=== PATIENT | male | born 1980 | race African-American/Black ===

== ENCOUNTER 2017-01-10 14:47 | Emergency (ER) | payer OTHER | END 2017-01-10 14:53 | disposition left against medical advice (07) | LOC: ER 14:47 | DX: Z53.9 Procedure and treatment not carried out, unspecified reason (principal); M54.9 Dorsalgia, unspecified ==

== ENCOUNTER 2017-11-18 14:25 | Emergency (ER) | payer SELFPAY ==
[2017-11-18 14:30] VITALS: BP 138/88
[2017-11-18] MEDS ORDERED: DICYCLOMINE HCL 20 MG TABLET PO ONE (14:44)
--- NOTE | 2017-11-18 14:50 | ER Document Report ---
ED General - General Chief Complaint: Abdominal Pain Stated Complaint: STOMACH PAIN Notes: 37-year-old male here with complaints of lower abdominal cramping intermittent ongoing for the past 1-2 days. He has also had some softer than usual stools that he is calling "diarrhea". He has not taken anything for the symptoms. He does not have any dysuria hematuria frequency hesitancy penile discharge/pain. He states that he went to [place] for a bachelor libertarian recently and that he did eat "a lot of libertarian food". He denies any fevers chills nausea vomiting. TRAVEL OUTSIDE OF THE [place] IN LAST 30 DAYS: No - Related Data Allergies/Adverse Reactions: No Known Allergies Allergy (Verified 11/18/17 14:26) Past Medical History - Social History Smoking Status: Current Every Day Smoker Chew tobacco use (# tins/day): No Frequency of alcohol use: None Drug Abuse: Marijuana Family History: None Patient has suicidal ideation: No Patient has homicidal ideation: No - Past Medical History Cardiac Medical History: Reports: Hx Hypertension Renal/ Medical History: Denies: Hx Peritoneal Dialysis Review of Systems - Review of Systems Notes: See history of present illness for pertinent positive review of systems; otherwise all review of systems have been reviewed and are negative Physical Exam - Vital signs Vitals: Temp Pulse Resp BP Pulse Ox 98.3 F 78 14 138/88 H 99 11/18/17 14:29 11/18/17 14:29 11/18/17 14:29 11/18/17 14:29 11/18/17 14:29 - Notes Notes: PHYSICAL EXAMINATION: GENERAL: Well-appearing and in no acute distress. HEAD: Atraumatic, normocephalic. EYES: Pupils equal round and reactive to light, extraocular movements intact, sclera anicteric, conjunctiva are normal. ENT: nares patent, oropharynx clear without exudates. Moist mucous membranes. NECK: Normal range of motion, supple without lymphadenopathy LUNGS: CTAB and equal. No wheezes rales or rhonchi. HEART: Regular rate and rhythm without murmurs ABDOMEN: Soft, no tenderness. No facial grimacing/wincing upon palpation. No guarding, no rebound. EXTREMITIES: Normal range of motion, no pitting edema. No cyanosis. NEUROLOGICAL: Cranial nerves grossly intact. Normal sensory/motor exams. PSYCH: Normal mood, normal affect. SKIN: Warm, Dry, normal turgor, no rashes or lesions noted Course - Re-evaluation Re-evalutation: 11/18/17 14:49 MEDICAL DECISION MAKING: Concern for gastroenteritis, most likely viral Will prescribe Bentyl Zofran and instructed follow-up PCP and/or health department Patient understands and agrees to the plan of care - Vital Signs Vital signs: Temp Pulse Resp BP Pulse Ox 98.3 F 78 14 138/88 H 99 11/18/17 14:29 11/18/17 14:29 11/18/17 14:29 11/18/17 14:29 11/18/17 14:29 Discharge - Discharge Clinical Impression: Abdominal cramping Condition: Good Disposition: HOME, SELF-CARE Additional Instructions: You were seen in the emergency department at [facility]. Use the prescribed medication as needed for your GI bug symptoms. Do not have unprotected sex. Please followup with your primary physician in the next few days for further management/evaluation. Please return to the emergency department for worsening of symptoms or any symptom that you deem to be concerning or life-threatening. Thank you for allowing us to be part of your care. Prescriptions: Ondansetron [Zofran Odt 4 mg Tablet] 1 - 2 tab PO Q4HP PRN #10 tab.rapdis PRN Reason: Dicyclomine HCl [Bentyl 20 mg Tablet] 20 mg PO QID #40 tablet
== END 2017-11-18 14:51 | disposition home or self-care (01) ==
LOC: ER 14:25
DX: R10.30 Lower abdominal pain, unspecified (principal); R19.4 Change in bowel habit; F17.200 Nicotine dependence, unspecified, uncomplicated; I10 Essential (primary) hypertension; F12.10 Cannabis abuse, uncomplicated
CPT/HCPCS: 99283; J3490

== ENCOUNTER 2018-01-06 23:45 | Emergency (ER) | payer SELFPAY ==
[2018-01-07 00:10] VITALS: BP 132/80
--- NOTE | 2018-01-07 01:29 | ER Document Report ---
HPI - HPI Pain Level: 3 Context: Patient is a 37-year-old male presents emergency department with a bump on his right posterior shoulder blade that has been there for an unknown period of time but states that his girlfriend is noticed it 2 days ago he denies any pain , redness, tenderness and decreased range of motion. - CONSTITUTIONAL Constitutional: DENIES: Fever, Chills - EENT EENT: DENIES: Sore Throat, Ear Pain, Eye problems - NEURO Neurology: DENIES: Headache, Weakness, Vision blurred, Dizzinesss / Vertigo - CARDIOVASCULAR Cardiovascular: DENIES: Chest pain - RESPIRATORY Respiratory: DENIES: Trouble Breathing, Coughing - GASTROINTESTINAL Gastrointestinal: DENIES: Abdominal Pain, Black / Bloody Stools - URINARY Urinary: DENIES: Dysuria, Urgency, Frequency - MUSCULOSKELETAL Musculoskeletal: DENIES: Extremity pain Past Medical History - Social History Smoking Status: Unknown if Ever Smoked Family History: None Patient has suicidal ideation: No Patient has homicidal ideation: No - Past Medical History Cardiac Medical History: Reports: Hx Hypertension Renal/ Medical History: Denies: Hx Peritoneal Dialysis Vertical Provider Document - CONSTITUTIONAL Agree With Documented VS: Yes Notes: PHYSICAL EXAM GENERAL: Alert, interacts well. HEAD: Normocephalic, atraumatic. EXTREMITIES: Right scapula with lipoma measuring 3 cm in diameter that is mobile , nontender and soft and fluctuant moves all 4 extremities spontaneously. No edema, radial pulses 2/4 bilaterally. No cyanosis. NEUROLOGICAL: Alert and oriented x4. Normal speech. PSYCH: Normal affect, normal mood. SKIN: Warm, dry, normal turgor. No rashes or lesions noted. - INFECTION CONTROL TRAVEL OUTSIDE OF THE [place] IN LAST 30 DAYS: No Course - Re-evaluation Re-evalutation: Patient is a 37-year-old male presents with a lipoma in the posterior shoulder blade, discussed with patient the benign nature of the site and to follow-up with primary care if symptoms change or worsen or any overlying redness, tenderness or swelling. This time there is no indication for imaging given benign and superficial nature of the site. - Vital Signs Vital signs: Temp Pulse Resp BP Pulse Ox 98.4 F 60 18 132/80 H 98 01/07/18 00:08 01/07/18 00:08 01/07/18 00:08 01/07/18 00:08 01/07/18 00:08 Discharge - Discharge Clinical Impression: Lipoma Qualifiers: Lipoma location: trunk Qualified Code(s): D17.1 - Benign lipomatous neoplasm of skin and subcutaneous tissue of trunk Condition: Good Disposition: HOME, SELF-CARE Additional Instructions: Superficial subcutaneous lipomas are the most common benign soft-tissue neoplasms. They consist of mature fat cells enclosed by thin fibrous capsules. Lipomas can occur on any part of the body and usually develop superficially in the subcutaneous tissue. Rarely, they may involve fascia or deeper muscular planes. Lipomas present as soft, painless subcutaneous nodules ranging in size from 1 to >10 cm. They occur most frequently on the trunk and upper extremities and can be round, oval, or multilobulated Referrals: EMERALD VALADEZ MD [ACTIVE STAFF] - Follow up as needed
== END 2018-01-07 01:33 | disposition home or self-care (01) ==
LOC: ER 23:45
DX: D17.1 Benign lipomatous neoplasm of skin and subcutaneous tissue of trunk (principal)
CPT/HCPCS: 99283

== ENCOUNTER 2018-12-03 13:42 | Emergency (ER) | payer SELFPAY ==
[2018-12-03] MEDS ORDERED: IBUPROFEN 600 MG TABLET PO ONE (14:00)
--- NOTE | 2018-12-03 14:01 | ER Document Report ---
HPI - HPI Time Seen by Provider: 12/03/18 13:51 Pain Level: 5 Notes: Patient is an otherwise healthy 38-year-old male the emergency department with complaints of pain to his left hand. Patient reports he was working on his car when the slater fell down and smashed his hand. Patient reports he is able to move all of his fingers. He denies any numbness or tingling. - CONSTITUTIONAL Constitutional: DENIES: Fever, Chills - EENT EENT: DENIES: Sore Throat, Ear Pain, Eye problems - NEURO Neurology: DENIES: Headache, Weakness, Vision blurred, Dizzinesss / Vertigo - CARDIOVASCULAR Cardiovascular: DENIES: Chest pain - RESPIRATORY Respiratory: DENIES: Trouble Breathing, Coughing - GASTROINTESTINAL Gastrointestinal: DENIES: Abdominal Pain, Black / Bloody Stools - URINARY Urinary: DENIES: Dysuria, Urgency, Frequency - MUSCULOSKELETAL Musculoskeletal: REPORTS: Extremity pain Past Medical History - General Information source: Patient - Social History Smoking Status: Current Every Day Smoker Chew tobacco use (# tins/day): No Frequency of alcohol use: None Drug Abuse: None Family History: None Patient has suicidal ideation: No Patient has homicidal ideation: No - Past Medical History Cardiac Medical History: Reports: Hx Hypertension Renal/ Medical History: Denies: Hx Peritoneal Dialysis Vertical Provider Document - CONSTITUTIONAL Notes: PHYSICAL EXAMINATION: GENERAL: Well-appearing, well-nourished and in no acute distress. HEAD: Atraumatic, normocephalic. EYES: Pupils equal round extraocular movements intact, conjunctiva are normal. ENT: Nares patent NECK: Normal range of motion LUNGS: No respiratory distress Musculoskeletal: Normal range of motion to left wrist and fingers. Significant swelling noted on the dorsal surface of the left hand. Strong radial pulse, cap refill less than 3 seconds. Normal motor and sensation distal to injury. NEUROLOGICAL: Normal speech, normal gait. PSYCH: Normal mood, normal affect. SKIN: Warm, Dry, normal turgor, no rashes or lesions noted. - INFECTION CONTROL TRAVEL OUTSIDE OF THE [place] IN LAST 30 DAYS: No Course - Re-evaluation Re-evalutation: X-ray shows a nondisplaced fracture of the fourth metacarpal of the left hand. Patient will be placed in an ulnar splint and discharged home with plan to follow-up with orthopedics. Procedures - Immobilization Left hand Pre-Proc Neuro Vasc Exam: Normal Immobilizer type: Ulnar Performed by: PCT Post-Proc Neuro Vasc Exam: Normal Alignment checked and good: Yes Discharge - Discharge Clinical Impression: Fracture of fourth metacarpal bone of left hand Qualifiers: Encounter type: initial encounter Fracture type: closed Metacarpal location: shaft Fracture alignment: nondisplaced Qualified Code(s): S62.355A - Nondisplaced fracture of shaft of fourth metacarpal bone, left hand, initial encounter for closed fracture Condition: Stable Disposition: HOME, SELF-CARE Additional Instructions: Fractured Metacarpal You have broken a metacarpal bone in the hand. The fracture is usually caused by hitting the hand against a hard surface, but can also be caused by jamming a finger. At first the injury should be rested, elevated, and ice packed. The usual treatment is splinting for four to six weeks. For some patients, a cast is preferable. The physician will advise you. It's important to avoid any twisting or jamming of the fingers while the fracture is healing. Force on the fingers can make the fracture move. Usually, one or two fingers are included in the splint or cast. Sometimes fingers are taped instead -- in this case, extra caution to prevent a twisting of the fingers is necessary. Call the doctor or come back if swelling or pain become severe, if numbness develops, or if you suspect you may have disturbed the fracture. There is a fracture in the fourth metacarpal of your left hand. Please take ibuprofen 600 mg every 6 hours for the next 24 to 48 hours this will help with pain and inflammation. Please take the narcotic pain medication for severe pain only. Please continue to ice and elevate. Keep the temporary splint in place until you are seen by orthopedics. Prescriptions: Hydrocodone Bit/Acetaminophen [Hydrocodon-Acetaminophen 5-325] 1 each PO Q4H #12 tablet Forms: Return to Work Referrals: CARLOS MANUEL NELSON DO [ACTIVE STAFF] - Follow up as needed
--- NOTE | 2018-12-03 14:48 | RADIOLOGY REPORT (SQ) ---
EXAM DESCRIPTION: HAND LEFT 3 VIEWS COMPLETED DATE/TIME: 12/03/2018 2:15 pm REASON FOR STUDY: injury COMPARISON: None. EXAM PARAMETERS: NUMBER OF VIEWS: Three views. TECHNIQUE: AP, lateral and oblique radiographic images acquired of the left hand. LIMITATIONS: None. FINDINGS: MINERALIZATION: Normal. BONES: Spiral fracture of the 4th metacarpal shaft with approximately 1/4 shaft width dorsal displace ment. JOINTS: No effusions. SOFT TISSUES: No soft tissue swelling. No foreign body. OTHER: No other significant finding. IMPRESSION: Fracture of the 4th metacarpal. TECHNICAL DOCUMENTATION: JOB ID: [id number] [employer]- All Rights Reserved Reading location - IP/workstation name: [email or web address]
[2018-12-03 15:04] VITALS: BP 122/83
== END 2018-12-03 15:04 | disposition home or self-care (01) ==
LOC: ER 13:42
DX: S62.355A Nondisplaced fracture of shaft of fourth metacarpal bone, left hand, initial encounter for closed fracture (principal); M79.642 Pain in left hand; W23.0XXA Caught, crushed, jammed, or pinched between moving objects, initial encounter; F17.200 Nicotine dependence, unspecified, uncomplicated; I10 Essential (primary) hypertension
CPT/HCPCS: 99283

== ENCOUNTER 2020-02-14 10:51 | Emergency (ER) | payer SELFPAY ==
[2020-02-14] MEDS ORDERED: DIPH/PERTUSS(ACELL)/TETANUS VAC/PF 0.5 ML SYR (>=10YO) IM ONE (11:45)
[2020-02-14] MEDS ORDERED: LIDOCAINE 2% INJ (20 MG/ML) 20 ML MDV INJ ONE (12:21)
[2020-02-14 12:28] VITALS: BP 143/94
--- NOTE | 2020-02-14 13:32 | ER Document Report ---
ED General - General Chief Complaint: Laceration Stated Complaint: LACERATION,RIGHT LEG INJURY Time Seen by Provider: 02/14/20 11:07 Mode of Arrival: Medic Information source: Patient Notes: 39-year-old male presents to the emergency department with a laceration to the left leg. Apparently he was outside cutting grass when the more that he was riding turn sharply and his leg hit a metal bar. He sustained a laceration onto the anterior aspect of the lower tibia. His tetanus is out of date, he is not allergic to any medications. Bleeding is controlled. TRAVEL OUTSIDE OF THE [place] IN LAST 30 DAYS: No - Related Data Allergies/Adverse Reactions: No Known Allergies Allergy (Verified 11/18/17 14:26) Past Medical History - Social History Smoking Status: Unknown if Ever Smoked Family History: None - Past Medical History Cardiac Medical History: Reports: Hx Hypertension Renal/ Medical History: Denies: Hx Peritoneal Dialysis Review of Systems - Review of Systems Notes: Constitutional: Negative for fever. HENT: Negative for sore throat. Eyes: Negative for visual changes. Cardiovascular: Negative for chest pain. Respiratory: Negative for shortness of breath. Gastrointestinal: Negative for abdominal pain, vomiting or diarrhea. Genitourinary: Negative for dysuria. Musculoskeletal: See HPI Skin: See HPI Neurological: Negative for headaches, weakness or numbness. 10 point ROS negative except as marked above and in HPI. Physical Exam - Vital signs Vitals: Temp Pulse Resp BP Pulse Ox 98.3 F 73 16 143/94 H 100 02/14/20 10:52 02/14/20 10:52 02/14/20 10:52 02/14/20 10:52 02/14/20 10:52 - Notes Notes: PHYSICAL EXAMINATION: Physical Exam: General: Well-nourished well-developed in no acute distress HEENT: NC/AT, pupils equal round and reactive to light, MM moist,nares clear, oropharynx clear, airway patent Neck: supple, no adenopathy, no masses. Good range of motion Lungs: clear, no wheezing, no rales no rhonchi CVS: Regular rate and rhythm no murmur gallop or rub Abdomen: Soft, active, nontender, no masses, no hepatosplenomegaly Ext: No edema, clubbing or cyanosis. Neuro: Alert and responsive, moving all 4 extremities on command, cranial nerves intact, no focal findings Skin: 3 cm laceration to the right anterior tibia, bleeding controlled, neurovascular intact PSYCH: Normal mood, normal affect. Course - Re-evaluation Re-evalutation: 02/14/20 13:29 Patient was given a Tdap, 5, 4-0 Prolene sutures were placed to close the wound. Wound dressing applied. Patient is given instructions to monitor for signs of infection. He is given Keflex for 5 days since he was outside at the time of the injury. He is using Tylenol or ibuprofen for pain. The patient understands this plan and is in agreement. - Vital Signs Vital signs: Temp Pulse Resp BP Pulse Ox 98.3 F 73 16 143/94 H 100 02/14/20 10:52 02/14/20 10:52 02/14/20 10:52 02/14/20 10:52 02/14/20 10:52 Procedures - Laceration/Wound Repair Right Dorsal Leg Time completed: 13:30 Wound length (cm): 3 Wound's Depth, Shape: Linear, Irregular Laceration pre-procedure: Sterile drapes applied, Shur-Clens applied Anesthetic type: 2% Lidocaine Volume Anesthetic (mLs): 5 Wound explored: Clean Irrigated w/ Saline (mLs): 20 Wound Repaired With: Sutures Suture Size/Type: 4:0, Prolene Number of Sutures: 5 Layer Closure?: No Post-procedure wound care: Sterile dressing applied Post-procedure NV exam normal: Yes Complications: No Discharge - Discharge Clinical Impression: Open wound of right lower leg Qualifiers: Encounter type: initial encounter Qualified Code(s): S81.801A - Unspecified open wound, right lower leg, initial encounter Condition: Good Disposition: HOME, SELF-CARE Instructions: Laceration Care ([facility]), Tetanus Immunization Given ([facility]) Additional Instructions: You were seen in the emergency department today for laceration to the right leg. Please change the dressing daily apply Neosporin for the first 3 days. Suture removal in 10 days. Please take the antibiotics as prescribed, may use Tylenol or ibuprofen for pain Follow-up with your primary care doctor as needed HOME CARE INSTRUCTIONS & INFORMATION: Thank you for choosing us for your medical needs. We hope you're satisfied with the care you received. After you leave, you must properly care for your problem and, at the same time, observe its progress. Any condition can change. Some illnesses can change rapidly over hours or days. If your condition worsens, return to the Emergency Department or see your physician promptly. ABOUT YOUR X-RAYS AND EKG'S: If you had an EKG or X-rays taken, they have been read by the Emergency Physician. The X-rays and EKG's will also be read by a Radiologist or Agricultural Produce Sorter within 24 hours. If discrepancies are noted, you will be notified by telephone. Please be certain the ED has a correct telephone number & address where you can be reached. Also, realize that some fractures or abnormalities do not show up on initial X-rays. If your symptoms continue, see your physician. ABOUT YOUR LABORATORY TEST: If you had laboratory tests, the results have been reviewed by the Emergency Physician. Some test results (for example cultures) may not be available for several days. You will be contacted if any test result shows you need additional treatment. Please be certain the ED has a correct telephone number and address where you can be reached. ABOUT YOUR MEDICATIONS: You will receive instructions on how to take your medicine on the prescription label you receive. Additional information may be provided by the Pharmacy. If you have questions afterwards, call the ED for clarification or further instructions. Some prescribed medications may cause drowsiness. Do not perform tasks such as driving a car or operating machinery without consulting your Pharmacist. If you feel you need a refill of pain medication, your condition will need re-evaluation. Please do not call for a refill of any medication. ABOUT YOUR SIGNATURE: Signature of this document acknowledges to followin. Understanding that you received emergency treatment and that you may be released before al medical problems are known or treated. Please be certain the ED has a correct phone number & address where you can be reached. 2. Acknowledgement that you will arrange for follow-up care as recommended. 3. Authorization for the Emergency Physician to provide information to your follow-up Physician in order to maximize your care. AT ANY TIME, IF YOUR SYMPTOMS CHANGE SIGNIFICANTLY OR WORSEN OR YOU DEVELOP NEW SYMPTOMS, RETURN TO THE EMERGENCY DEPARTMENT IMMEDIATELY FOR RE-EVALUATION. OUR GOAL IS TO PROVIDE EXCELLENT MEDICAL CARE! WE HOPE THAT WE HAVE MET YOUR EXPECTATIONS DURING YOUR EMERGENCY DEPARTMENT VISIT AND THAT YOU FEEL YOU HAVE RECEIVED EXCELLENT CARE! Prescriptions: Cephalexin Monohydrate [Keflex 500 mg Capsule] 500 mg PO Q8 5 Days capsule
== END 2020-02-14 13:51 | disposition home or self-care (01) ==
LOC: ER 10:51
DX: K08.89 Other specified disorders of teeth and supporting structures (principal); R22.0 Localized swelling, mass and lump, head; F17.210 Nicotine dependence, cigarettes, uncomplicated
CPT/HCPCS: 99283; 90471; 90715; J3490

== ENCOUNTER 2020-03-10 22:32 | Emergency (ER) | payer SELFPAY ==
[2020-03-10 22:44] VITALS: BP 138/93
== END 2020-03-11 00:55 | disposition left against medical advice (07) ==
LOC: ER 22:32
DX: Z53.21 Procedure and treatment not carried out due to patient leaving prior to being seen by health care provider (principal)